=== PATIENT | male | born 1995 | race African-American/Black ===

== ENCOUNTER 2021-10-06 17:02 | Emergency (ER) | payer SELFPAY ==
[~2021-10-06] VITALS: Ht 193 cm; Wt 91.0 kg
[2021-10-06 17:29] VITALS: BP 110/68
[2021-10-06] MEDS ORDERED: ACETAMINOPHEN 325MG TABLET PO ONE (18:00)
[2021-10-06] MEDS ORDERED: LIDOCAINE 5% PATCH TOP SCH (18:00)
[2021-10-06] MEDS ORDERED: DEXAMETHASONE 10 MG/ML VIAL IV ONE (18:00)
[2021-10-06] MEDS ORDERED: BACL-141 MT (18:07)
[2021-10-06] MEDS ORDERED: ACET-2708 MT (18:07)
[2021-10-06] MEDS ORDERED: LIDO700A15 TP (18:07)
== END 2021-10-06 19:22 | disposition home or self-care (01) ==
LOC: ER 17:02
DX: S13.4XXA Sprain of ligaments of cervical spine, initial encounter (principal); S46.811A Strain of other muscles, fascia and tendons at shoulder and upper arm level, right arm, initial encounter; R51.9 Headache, unspecified; V43.62XA Car passenger injured in collision with other type car in traffic accident, initial encounter; Y93.89 Activity, other specified; Y92.488 Other paved roadways as the place of occurrence of the external cause
CPT/HCPCS: 99283

== ENCOUNTER 2023-03-27 16:03 | Emergency (ER) | payer MEDICAID ==
[~2023-03-27] VITALS: Ht 175.3 cm; Wt 77.0 kg
[~2023-03-27 16:03] MED LIST: ACET-2708 MT; BACL-141 MT; LIDO700A15 TP
[2023-03-27 16:15] VITALS: BP 114/77; PULSE 101; RESP 16; TEMP 99.3; O2SAT 100
== END 2023-03-27 16:15 | disposition left against medical advice (07) ==
LOC: ER 16:03
DX: Z53.21 Procedure and treatment not carried out due to patient leaving prior to being seen by health care provider (principal)
CPT/HCPCS: 99281